=== PATIENT | female | born 1995 | race Caucasian/White ===

== ENCOUNTER 2019-02-02 01:11 | Emergency (ER) | payer MEDICAID, SELFPAY ==
[~2019-02-02] VITALS: Ht 165.1 cm; Wt 98.4 kg
[2019-02-02 01:17] VITALS: BP 140/98
[2019-02-02] MEDS ORDERED: METHOCARBAMOL 750 MG TABLET ONE (01:38)
[2019-02-02] MEDS ORDERED: METHOCARBAMOL 750 MG TABLET PO ONE (02:00)
[2019-02-02] MEDS ORDERED: HYDROcodone/APAP 5/325 TABLET PO ONE (02:30)
[2019-02-02] MEDS ORDERED: HYDROcodone/APAP 5/325 TABLET ONE (02:36)
== END 2019-02-02 03:02 | disposition home or self-care (01) ==
LOC: ED 01:42
DX: M54.41 Lumbago with sciatica, right side (principal)
CPT/HCPCS: 99283